=== PATIENT | male | born 1945 | race Caucasian/White ===

== ENCOUNTER → 2021-12-13 | Outpatient (CLI) | payer MEDICARE | END | disposition home or self-care (01) | LOC: PREOP 05:31 | PROVIDERS: ATTEND Otolaryngology Otolaryngology/Facial Plastic Surgery | DX: Z01.818 Encounter for other preprocedural examination (principal) ==

== ENCOUNTER 2022-07-04 05:31 | Outpatient (CLI) | payer MEDICARE ==
[~2022-07-04] VITALS: Ht 175.3 cm; Wt 68.6 kg
[2022-07-09] MEDS ORDERED: OXYC1TAB15 PO (11:16)
[2022-07-09] MEDS ORDERED: LISI-594 PO (11:16)
[2022-07-09] MEDS ORDERED: INSU100V16 SQ (11:16)
[2022-07-09] MEDS ORDERED: CARB1TAB45 PO (11:16)
[2022-07-09] MEDS ORDERED: ATOR10TA66 PO (11:16)
[2022-07-09] MEDS ORDERED: TRAZ150T72 PO (11:16)
[2022-07-09] MEDS ORDERED: FURO-125 PO (11:16)
[2022-07-09] MEDS ORDERED: TIZA-186 PO (11:16)
[2022-07-09] MEDS ORDERED: SERT100T PO (11:16)
[2022-07-09] MEDS ORDERED: GABA300S2 PO (11:16)
[2022-07-09] MEDS ORDERED: INSU100V5 SQ ×2 (11:16)
[2022-07-09] MEDS ORDERED: PANT40TA52 PO (11:16)
== END 2022-07-09 12:15 | disposition home or self-care (01) ==
LOC: PREOP 05:31
PROVIDERS: ATTEND Otolaryngology Otolaryngology/Facial Plastic Surgery
DX: Z01.818 Encounter for other preprocedural examination (principal); J34.89 Other specified disorders of nose and nasal sinuses

== ENCOUNTER 2022-07-11 08:13 | Day surgery (SDC) | payer MEDICARE ==
[~2022-07-11] VITALS: Ht 175 cm; Wt 68.6 kg
[2022-07-11] VITALS (9 sets, daily range): BP systolic 131–144; BP diastolic 62–85
[~2022-07-11 08:13] MED LIST: ATOR10TA66 PO; CARB1TAB45 PO; FURO-125 PO; GABA300S2 PO; INSU100V16 SQ; INSU100V5 SQ; LISI-594 PO; OXYC1TAB15 PO; PANT40TA52 PO; SERT100T PO; TIZA-186 PO; TRAZ150T72 PO
[2022-07-11] MEDS ORDERED: LIDOCAINE/EPI 1%-1:100,000 (XYLOCAINE) 30ML ONE (08:28)
[2022-07-11] MEDS ORDERED: MUPIROCIN 2% OINT 22 GM (BACTROBAN) TUBE ONE (08:28)
[2022-07-11] MEDS ORDERED: COCAINE HCL 4% 2 ML SYR ONE (08:28)
[2022-07-11] MEDS ORDERED: PHENYLEPHRINE 0.5% NASAL SPR (NEO-SYNEPHRINE) REG ONE ×2 (08:28→09:10)
[2022-07-11] MEDS ORDERED: LACTATED RINGERS 1,000 ML IV PRN (08:30)
[2022-07-11] MEDS ORDERED: fentaNYL INJ 100 MCG/2 ML AMP ONE (08:37)
[2022-07-11] MEDS ORDERED: ONDANSETRON 4 MG/2 ML (SDV) Z0FRAN ONE (08:37)
[2022-07-11] MEDS ORDERED: ROCURONIUM 50 MG/5 ML (ZEMURON) VIAL IV ONE (08:37)
[2022-07-11] MEDS ORDERED: SEVOFLURANE (ULTANE) 15 ML INHAL SOLN ONE ×2 (08:37→09:44)
[2022-07-11] MEDS ORDERED: proPOfol 200 MG/20 ML (DIPRIVAN) VIAL IV ONE (08:37)
[2022-07-11] MEDS ORDERED: LIDOCAINE PF 2% 5 ML (XYLOCAINE) VIAL ONE (08:37)
[2022-07-11 08:46] LABS: BASOPHILS % (AUTO) 1 % (0-10); EOSINOPHILS # (AUTO) 0.1 10^3/uL (0.0-0.3); EOSINOPHILS % (AUTO) 2 % (0-10); HEMATOCRIT 45 % (40-54); LYMPHOCYTES # (AUTO) 1.5 10^3/uL (1.0-4.0); LYMPHOCYTES % (AUTO) 18 % (12-44); MEAN CORPUSCULAR HEMOGLOBIN 31 pg (25-34); MEAN CORPUSCULAR HGB CONC 34 g/dL (32-36); MEAN CORPUSCULAR VOLUME 91 fL (80-99); MEAN PLATELET VOLUME 9.7 fL (9.0-12.2); MONOCYTES # (AUTO) 0.7 10^3/uL (0.0-1.0); MONOCYTES % (AUTO) 8 % (0-12); NEUTROPHILS # (AUTO) 5.9 10^3/uL (1.8-7.8); NEUTROPHILS % (AUTO) 71 % (42-75); PLATELET COUNT 146 10^3/uL (130-400); WHITE BLOOD COUNT 8.4 10^3/uL (4.3-11.0)
--- NOTE | 2022-07-11 08:53 | Progress Note-Post Operative ---
Post-Operative Progess Note Surgeon (s)/Server Administrator (s) Surgeon FRANK DALTON MD Server Administrator n/a Pre-Operative Diagnosis Left Intranasal Lesion Post-Operative Diagnosis same Post-Op Procedure Note Date of Procedure: Jul 11, 2022 Name of Procedure Performed: Excison of Left INtranasal Lesion Description & Findings Description and Findings: n/a Anesthesia Type get Estimated Blood Loss minimal Packing none. Specimen(s) collected/removed left intranasal Lesion FRANK DALTON MD Jul 11, 2022 08:53
--- NOTE | 2022-07-11 08:53 | Progress Note-Pre Operative ---
Pre-Operative Progress Note Date of Available H&P: Jul 11, 2022 Date H&P Reviewed: Jul 11, 2022 Time H&P Reviewed: 08:30 History & Physical: H&P Reviewed, Patient Examed, No changes noted Changes from last HP none Pre-Operative Diagnosis: Left Intranasal Lesion FRANK DALTON MD Jul 11, 2022 08:53
[2022-07-11 08:56] LABS: POTASSIUM 4.1 MMOL/L (3.6-5.0)
[2022-07-11 08:57] LABS: CALCIUM 9.3 MG/DL (8.5-10.1)
[2022-07-11] MEDS ORDERED: D5 1/2 NS W/KCL 20 MEQ/L 1,000 ML IV SCH (09:00)
[2022-07-11] MEDS ORDERED: PROMETHAZINE INJ 25 MG/ML (PHENERGAN) AMP IVP PRN (09:00)
[2022-07-11] MEDS ORDERED: HYDROcodone/APAP 5 MG/325 MG (LORTAB) TAB PO PRN (09:00)
[2022-07-11 09:01] LABS: CREATININE SERUM 1.03 MG/DL (0.60-1.30)
[2022-07-11] MEDS ORDERED: COCAINE HCL 4% 2 ML SYR TOP ONE (09:08)
[2022-07-11] MEDS ORDERED: LIDOCAINE/EPI 1%-1:100,000 (XYLOCAINE) 30ML INJ ONE (09:09)
[2022-07-11] MEDS ORDERED: MUPIROCIN 2% OINT 22 GM (BACTROBAN) TUBE TOP ONE (09:32)
--- NOTE | 2022-07-11 10:01 | Anesthesia-General Post-Op ---
General Patient Condition Mental Status/LOC: Same as Preop Cardiovascular: Satisfactory Nausea/Vomiting: Absent Respiratory: Satisfactory Pain: Controlled Complications: Absent Post Op Complications Complications None Follow Up Care/Instructions Patient Instructions None needed. Anesthesia/Patient Condition Patient Condition Patient is doing well, no complaints, stable vital signs, no apparent adverse anesthesia problems. No complications reported per nursing. CATHY GAMBOA CRNA Jul 11, 2022 10:01
[2022-07-11] MEDS ORDERED: morphine INJ 10 MG/ML 1ML (SYR OR VIAL) ONE (10:02)
[2022-07-11] MEDS ORDERED: MEPERIDINE (DEMEROL) INJ 50 MG/ML IVP ONE (10:15)
[2022-07-11] MEDS ORDERED: PROMETHAZINE INJ 25 MG/ML (PHENERGAN) AMP IVP ONE (10:15)
[2022-07-11] MEDS ORDERED: ONDANSETRON 4 MG/2 ML (SDV) Z0FRAN IVP PRN (10:15)
[2022-07-11] MEDS ORDERED: morphine INJ 10 MG/ML 1ML (SYR OR VIAL) IVP ONE (10:15)
[2022-07-11] MEDS ORDERED: ACHD5005 PO (11:05)
== END 2022-07-11 11:30 | disposition home or self-care (01) ==
LOC: SDC 08:13
PROVIDERS: ATTEND Otolaryngology Otolaryngology/Facial Plastic Surgery
DX: C30.0 Malignant neoplasm of nasal cavity (principal)
CPT/HCPCS: 36415; 80048; 82947; 85025; 87081; 93005